=== PATIENT | female | born 1970 | race Caucasian/White ===

== ENCOUNTER 2016-12-29 18:53 | Observation (INO) | payer OTHER, MEDICAID ==
[~2016-12-29] VITALS: Ht 167.6 cm; Wt 56.8 kg
[2016-12-29 19:36] LABS: HEMOGLOBIN 12.5 g/dL (11.7-16.4); WHITE BLOOD COUNT 4.9 x10^3/uL (3.4-10)
[2016-12-29 19:49] LABS: ASPARTATE AMINO TRANSFERASE 10 U/L (15-37); BLOOD UREA NITROGEN 12 mg/dL (7-18)
[2016-12-29 20:00] LABS: ACETAMINOPHEN < 2 mcg/mL (10-30)
[2016-12-29] MEDS ORDERED: SODIUM CHLORIDE 0.9% 1,000ML IVBOLUS ONE (21:30)
[2016-12-29 21:55] LABS: DAU SCREEN DISCLAIMER
[2016-12-29 22:16] LABS: PATH.CAST-FLAG NOT PRESENT; SPERM-FLAG NOT PRESENT; SRC-FLAG NOT PRESENT; XTAL-FLAG NOT PRESENT; YLC-FLAG NOT PRESENT
[2016-12-29] MEDS ORDERED: SODIUM CHLORIDE 0.9% 1,000 ML IV ONE (23:01)
[2016-12-29] MEDS ORDERED: ONDANSETRON 2MG/ML, 2ML IVPush PRN (23:30)
[2016-12-29] MEDS: SODIUM CHLORIDE 0.9% 1,000 ML IV SCH (23:30)
[2016-12-30] VITALS (7 sets, daily range): BP systolic 99–132; BP diastolic 63–89
[2016-12-30] MEDS ORDERED: ENOXAPARIN 40 MG/0.4 ML ONE (00:46)
[2016-12-30] MEDS: ENOXAPARIN 40 MG/0.4 ML SQ SCH ×2 (01:01→23:05)
[2016-12-30 05:06] LABS: HEMATOCRIT 37.6 % (34.6-47.8); HEMOGLOBIN 12.6 g/dL (11.7-16.4); WHITE BLOOD COUNT 5.6 x10^3/uL (3.4-10)
[2016-12-30 05:25] LABS: BLOOD UREA NITROGEN 11 mg/dL (7-18)
[2016-12-30] MEDS: SODIUM CHLORIDE 0.9% 1,000 ML IV SCH ×2 (12:31→22:47)
[2016-12-31 01:37] VITALS: BP 143/81
[2016-12-31 05:14] LABS: HEMATOCRIT 37.7 % (34.6-47.8); HEMOGLOBIN 12.6 g/dL (11.7-16.4); WHITE BLOOD COUNT 5.1 x10^3/uL (3.4-10)
[2016-12-31 05:33] LABS: ASPARTATE AMINO TRANSFERASE 8 U/L (15-37); BLOOD UREA NITROGEN 8 mg/dL (7-18)
[2016-12-31 06:43] VITALS: BP 113/72
[2016-12-31] MEDS: SODIUM CHLORIDE 0.9% 1,000 ML IV SCH ×2 (08:52→20:56)
[2016-12-31 14:35] VITALS: BP 136/91
[2016-12-31 18:41] VITALS: BP 148/88
[2016-12-31] MEDS: ENOXAPARIN 40 MG/0.4 ML SQ SCH (20:57)
[2017-01-01 05:26] VITALS: BP 143/82
[2017-01-01] MEDS: SODIUM CHLORIDE 0.9% 1,000 ML IV SCH (06:01)
[2017-01-01 07:08] VITALS: BP 144/78
[2017-01-01] MEDS: DULOXETINE 30 MG CAPSULE.DR PO SCH (10:56)
[2017-01-01] MEDS: GABAPENTIN 100 MG CAPSULE PO SCH ×3 (10:56→20:16)
[2017-01-01 11:18] VITALS: BP 156/94
[2017-01-01] MEDS: ONDANSETRON 4 MG TABLET PO PRN (13:06)
[2017-01-01] MEDS ORDERED: LOPERAMIDE 2 MG CAPSULE PO PRN (16:00)
[2017-01-01] MEDS: ACETAMINOPHEN 325 MG TABLET PO PRN (17:08)
[2017-01-01 19:54] VITALS: BP 154/90
[2017-01-01] MEDS: ENOXAPARIN 40 MG/0.4 ML SQ SCH (20:19)
[2017-01-01] MEDS ORDERED: DIVALPROEX 500 MG TAB.ER.24H PO SCH (21:00)
[2017-01-01] MEDS ORDERED: NICOTINE GUM 2 MG BC ONE (22:00)
[2017-01-02] MEDS: ONDANSETRON 4 MG TABLET PO PRN (05:57)
[2017-01-02 07:18] VITALS: BP_SYST 151; BP_SYST 154; BP_DIAS 100; BP_DIAS 101
[2017-01-02] MEDS ORDERED: NICOTINE 7 MG/24 HR PATCH.TD24 TD SCH (07:30)
[2017-01-02] MEDS ORDERED: CALCIUM CARBONATE 500 MG TAB.CHEW PO PRN (08:00)
[2017-01-02] MEDS ORDERED: TRAZODONE 50MG TABLET PO PRN (08:00)
[2017-01-02] MEDS: GABAPENTIN 100 MG CAPSULE PO SCH (08:22)
[2017-01-02] MEDS: DULOXETINE 30 MG CAPSULE.DR PO SCH (08:22)
[2017-01-02] MEDS: ACETAMINOPHEN 325 MG TABLET PO PRN (10:51)
[2017-01-02 11:12] VITALS: BP 130/85
[2017-01-02] MEDS ORDERED: DULO30CA2 PO (14:10)
[2017-01-02] MEDS ORDERED: GABA-826 PO (14:10)
[2017-01-02] MEDS ORDERED: TRAZ50TA18 PO (14:10)
[2017-01-02] MEDS ORDERED: DIVA500T4 PO (14:10)
== END 2017-01-02 15:30 | disposition home or self-care (01) ==
LOC: ED 23:00 → INTOOBSV 23:01 → EDIP 23:01 → ED 23:51 → 5SO 12-30 00:38 → 4EST 12-30 21:18 → 3E 01-01 11:11
DX: T42.4X1A Poisoning by benzodiazepines, accidental (unintentional), initial encounter (principal); G92 Toxic encephalopathy; F33.2 Major depressive disorder, recurrent severe without psychotic features; F13.20 Sedative, hypnotic or anxiolytic dependence, uncomplicated; F11.20 Opioid dependence, uncomplicated; F22 Delusional disorders; F41.0 Panic disorder [episodic paroxysmal anxiety]; K52.9 Noninfective gastroenteritis and colitis, unspecified; Y92.89 Other specified places as the place of occurrence of the external cause; Z81.8 Family history of other mental and behavioral disorders; Z82.49 Family history of ischemic heart disease and other diseases of the circulatory system
CPT/HCPCS: 36415; 70450; 71010; 80048; 80053; 80307; 80329; 81001; 84703; 85025; 87324; 93005; 96360; 96361; 96372; 99285; G0378; J1650; J7030; Q0162; G0480